=== PATIENT | female | born 1945 | race Caucasian/White ===

== ENCOUNTER → 2016-11-27 | Outpatient (CLI) | payer MEDICARE, MEDICAID | END | disposition home or self-care (01) | LOC: RADMN 09:19 | PROVIDERS: ATTEND Family Medicine | DX: I67.82 Cerebral ischemia (principal); I67.2 Cerebral atherosclerosis; I65.23 Occlusion and stenosis of bilateral carotid arteries | CPT/HCPCS: 70450 ==